=== PATIENT | male | born 2000 | race Hispanic/Latino ===

== ENCOUNTER → 2025-01-29 | Day surgery (SDC) | payer OTHER ==
[~2025-01-29] MED LIST: ACETAMINOPHEN 1000 MG/100 ML 100 ML IV ONE; DEXAMETHASONE SOD PHOS INJ 4 MG/ML SDV ONE; FENTANYL CITRATE/PF 100MCG/2 ML INJ ONE; LACTATED RINGER'S 1,000 ML ONE; LIDOCAINE HCL 2% LOCAL INJ 5 ML SDV VIAL INJ ONE; MIDAZOLAM HCL 2 MG/2 ML VIAL ONE; ONDANSETRON HCL INJ 2MG/ML 2ML 2 MG/ML VIAL ONE; PROPOFOL IV EMULSION 10 MG/ML 20 ML VIAL ONE
[2025-01-29 12:23] LABS: BASOPHILS % 1.3 % (0.0-1.0); EOSINOPHILS % 5.0 % (0.0-6.0); LYMPHOCYTES % 37.1 % (18.0-39.1); MONOCYTES % 10.3 % (4.4-11.3); NEUTROPHILS % 46.1 % (38.7-80.0); RED CELL DISTRIBUTION WIDTH 13.2 % (11.7-14.4)
[2025-01-29 13:08] LABS: EST GLOMERULAR FILTRATION RATE 128.0 ML/MIN (>=60)
[2025-01-29 15:45] VITALS: BP 108/74; PULSE 47; RESP 18; O2SAT 100
== END | disposition home or self-care (01) ==
LOC: OR 15:08
PROVIDERS: ATTEND Urology
DX: N47.1 Phimosis (principal); N47.5 Adhesions of prepuce and glans penis
CPT/HCPCS: 36415; 54161; 80048; 85025; 88304; J0131; J0690; J1100; J2003; J2250; J2405; J2704; J3010; J7121